=== PATIENT | male | born 1980 | race Caucasian/White ===

== ENCOUNTER 2018-05-20 01:28 | Emergency (ER) | payer OTHER ==
[~2018-05-20] VITALS: Ht 177.8 cm; Wt 93.0 kg
--- NOTE | ~2018-05-20 | EKG ---
[address] [address] ELECTROCARDIOGRAM REPORT Name: ALPHONSE AMARAL [id number] Admission: 05/20/18 Attend Phys: Discharge: 05/20/18 Date of : 76 Report #: [id number] THIS REPORT FOR: //name// [facility] ED Test Date: 2018-05-20 Test Time: 01:27:02 Pat Name: ALPHONSE AMARAL Department: Room: Gender: M Director Content Marketing: SRINIVASAN : 1980 Requested By: Ashley Dia Order Number: [id number] MD: Maxwell Stevenson Measurements Intervals [place] Rate: 106 P: 48 HI: 149 QRS: 89 QRSD: 98 T: 42 QT: 333 QTc: 443 Interpretive Statements Sinus tachycardia Otherwise normal tracing No previous ECG available for comparison Electronically Signed On 05-21-2018 7:52:16 CDT by Maxwell Stevenson [email or web address] <ELECTRONICALLY SIGNED> By: Maxwell Stevenson MD, [facility] 05/21/18 [id number] Maxwell Stevenson MD, FACC /EPI
[2018-05-20 03:07] LABS: ABSOLUTE NEUTROPHILS 3.6 thou/uL (1.4-8.2); BASOPHILS 0.5 % (0.0-2.0); EOSINOPHILS 3.4 % (0.0-3.0); HEMATOCRIT 43.3 % (42.0-52.0); HEMOGLOBIN 15.3 gm/dL (14.0-18.0); MCH 34.1 pg (26.0-34.0); MCHC 35.3 g/dL (28.0-37.0); MCV 96.4 fL (80.0-100.0); MONOCYTES 9.3 % (1.0-8.0); PLATELET COUNT 167 thou/uL (150-400); POLYS 46.8 % (36.0-66.0); RDW 13.8 % (10.5-14.5); WBC 7.7 thou/uL (4.0-11.0)
[2018-05-20 03:15] LABS: ANION GAP 8 mmol/L (7-16); BUN 13 mg/dL (7-18); CALCIUM 8.3 mg/dL (8.5-10.1); CHLORIDE 104 mmol/L (98-107); CO2 24 mmol/L (21-32); CREATININE 0.7 mg/dL (0.7-1.3); GLUCOSE 121 mg/dL (74-106); POTASSIUM 3.7 mmol/L (3.5-5.1); SODIUM 136 mmol/L (136-145)
[2018-05-20 03:24] LABS: MAGNESIUM 1.9 mg/dL (1.8-2.4); TROPONIN-I <0.06 ng/mL (<0.06)
[2018-05-20] MEDS ORDERED: WELLBUTRIN 100100 MG PO (04:06)
[2018-05-20 04:40] VITALS: BP 108/72
== END 2018-05-20 04:41 | disposition home or self-care (01) ==
LOC: ER 01:28
PROVIDERS: Emergency Medicine
DX: R00.2 Palpitations (principal); R00.0 Tachycardia, unspecified; F17.210 Nicotine dependence, cigarettes, uncomplicated